=== PATIENT | female | born 1935 | race Caucasian/White ===

== ENCOUNTER → 2017-07-31 | Outpatient (CLI) | payer MEDICARE, OTHER | END | disposition home or self-care (01) | LOC: GMAJ 10:55 | PROVIDERS: ATTEND Family Medicine | DX: E03.9 Hypothyroidism, unspecified (principal) ==

== ENCOUNTER 2018-10-05 08:11 | Emergency (ER) | payer MEDICARE, OTHER ==
[2018-10-05 08:43] VITALS: TEMP 97.1; O2SAT 98
--- NOTE | 2018-10-05 09:06 | ED.PDOC ---
History of Present Illness - General Chief Complaint: General Stated Complaint: rectal pain and discomfort Time Seen by Provider: 10/05/18 09:03 Source: patient Exam Limitations: no limitations - History of Present Illness Initial Comments: the patient is an 83-year-old female presenting to the emergency room secondary to bleeding external hemorrhoids. Apparently she started having some bleeding last night. At this point she is essentially hemostatic. She has had hemorrhoids for a very long time. She does have some chronic constipation issues. She is not taking anything for the hemorrhoids but she does take blood thinners of Plavix and aspirin. No history of any lower extremity endoscopies in the past.clinically the patient does not appear to be anemic. Timing/Duration: 4-6 hours Severity: moderate Improving Factors: nothing Worsening Factors: nothing Associated Symptoms: denies symptoms Allergies/Adverse Reactions: Allergies NO KNOWN ALLERGY Allergy (Verified 10/05/18 08:39) Home Medications: Ambulatory Orders Aspirin-Dipyridamole [Aggrenox] 2 cap PO DAILY 11/21/13 Ezetimibe/Simvastatin 10/40Mg [Vytorin] 1 tab PO 11/21/13 Nifedipine 1 PO QAM 11/21/13 Nitroglycerin [Minitran] 0.4 mg SL PRN PRN 01/19/15 Docusate Sodium [Colace Cap] 100 mg PO BID #14 cap 10/05/18 Hydrocortisone 25 mg Supp [Anusol-HC Suppository] 1 ea AR Q8HR #14 sup 10/05/18 Review of Systems - Review of Systems Constitutional: States: no symptoms reported EENTM: States: no symptoms reported Respiratory: States: no symptoms reported Cardiology: States: no symptoms reported Gastrointestinal/Abdominal: States: see HPI Genitourinary: States: no symptoms reported Musculoskeletal: States: no symptoms reported Skin: States: no symptoms reported Neurological: States: anxiety All other Systems: No Change from Baseline Past Medical History (General) - Patient Medical History Hx Seizures: No Hx Stroke: No Hx Asthma: No Hx of COPD: No Hx Cardiac Disorders: Yes - heart stent 4 weeks ago Hx Congestive Heart Failure: No Hx Pacemaker: No Hx Hypertension: Yes Hx Diabetes: No Hx Gastroesophageal Reflux: No Hx Renal Disease: No Hx Cancer: No Hx of HIV: No Hx Hepatitis C: No Hx MRSA: No Surgical History: Hysterectomy - Vaccination History Hx Tetanus, Diphtheria Vaccination: Yes Hx Influenza Vaccination: Yes Hx Pneumococcal Vaccination: Yes Immunizations Up to Date: Yes - Social History Hx Tobacco Use: No Hx Chewing Tobacco Use: No Hx Alcohol Use: No Hx Substance Use: No Hx Substance Use Treatment: No Hx Depression: No Feels Threatened In Home Enviroment: No Feels Threatened In a Relationship: No Hx Physical Abuse: No Hx Emotional Abuse: No Hx Suspected Abuse: No - Female History Patient is a Female of Child Bearing Age (10 -59 yrs old): No Patient : No Family Medical History - Family History Father Family History: Unknown Living Status: Hx Family Asthma: No Hx Family Cancer: Yes - lung Physical Exam - Physical Exam General Appearance: Alert, Anxious, No apparent distress Eye Exam: bilateral normal Ears, Nose, Throat: hearing grossly normal, normal ENT inspection Neck: full range of motion Respiratory: no respiratory distress, no accessory muscle use Cardiovascular/Chest: normal peripheral pulses, no edema, other - regular rate Peripheral Pulses: radial,right: 2+, radial,left: 2+, dorsalis pedis,right: 2+, dorsalis pedis,left: 2+ Gastrointestinal/Abdominal: non tender, soft Rectal Exam: other - no digital rectal exam was performed given the obviously engorged external hemorrhoids. The patient has very large external hemorrhoids that are chronic in nature. she has 2 that appeared to have recently been bleeding but are not bleeding at this time. they are very tender to palpation. 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 The Plavix and aspirin are likely making the bleeding a little more of a problem than it would be otherwise. The patient is going to be written for Anusol suppositories and she needs to pick and shovel man some Preparation H ointment to use externally 3-4 times daily. She will also be written for Colace to take 3 times daily for the next week to prevent constipation. She needs to keep herself hydrated. I do want her to follow back up with her primary care doctor in a week to 10 days for repeat evaluation, hopefully once the hemorrhoids are starting to shrink down to make sure that there is no evidence of any mass component otherwise contributing to their development. The patient may be a good candidate for flexible sigmoidoscopy in the near future. She denies ever having had a colonoscopy or flexible sigmoidoscopy in the past. blood pressures were initially elevated however have returned down to normal. This is most likely a stress response. ER warnings were given for any worsening. Departure - Departure Clinical Impression: External bleeding hemorrhoids Disposition: Discharge to Home or Self Care Condition: Fair Departure Forms: ED Discharge - Pt. Copy, Patient Portal Self Enrollment Instructions: Hemorrhoids (DC) Diet: other - igh-fiber Referrals: Gerard Guerrero MD [Primary Care Provider] - 1-2 Weeks Prescriptions: Hydrocortisone 25 mg Supp [Anusol-HC Suppository] 1 ea AR Q8HR #14 sup Docusate Sodium [Colace Cap] 100 mg PO BID #14 cap Home Medications: Ambulatory Orders Aspirin-Dipyridamole [Aggrenox] 2 cap PO DAILY 11/21/13 Ezetimibe/Simvastatin 10/40Mg [Vytorin] 1 tab PO 11/21/13 Nifedipine 1 PO QAM 11/21/13 Nitroglycerin [Minitran] 0.4 mg SL PRN PRN 01/19/15 Docusate Sodium [Colace Cap] 100 mg PO BID #14 cap 10/05/18 Hydrocortisone 25 mg Supp [Anusol-HC Suppository] 1 ea AR Q8HR #14 sup 10/05/18 Additional Instructions: the patient is an 83-year-old female presenting to the emergency room secondary to bleeding external hemorrhoids that appear to be chronic in nature. The Plavix and aspirin are likely making the bleeding a little more of a problem than it would be otherwise. The patient is going to be written for Anusol suppositories and she needs to pick and shovel man some Preparation H ointment to use externally 3-4 times daily. She will also be written for Colace to take 3 times daily for the next week to prevent constipation. She needs to keep herself hydrated. I do want her to follow back up with her primary care doctor in a week to 10 days for repeat evaluation, hopefully once the hemorrhoids are starting to shrink down to make sure that there is no evidence of any mass component otherwise contributing to their development. The patient may be a good candidate for flexible sigmoidoscopy in the near future. She denies ever having had a colonoscopy or flexible sigmoidoscopy in the past. blood pressures were initially elevated however have returned down to normal. This is most likely a stress response. ER warnings were given for any worsening.
[2018-10-05 09:55] VITALS: BP 157/95
== END 2018-10-05 09:57 | disposition home or self-care (01) ==
LOC: ER 08:11
DX: K64.4 Residual hemorrhoidal skin tags (principal); I51.9 Heart disease, unspecified; I10 Essential (primary) hypertension; Z95.5 Presence of coronary angioplasty implant and graft; Z79.02 Long term (current) use of antithrombotics/antiplatelets; Z79.82 Long term (current) use of aspirin; Z79.899 Other long term (current) drug therapy

== ENCOUNTER 2020-04-30 10:18 | Emergency (ER) | payer OTHER ==
[2020-04-30] MEDS ORDERED: SODIUM CHLORIDE 0.9% (FLUSH) 10 ML SYG ONE (10:33)
[2020-04-30] MEDS ORDERED: SODIUM CHLORIDE 0.9% (FLUSH) 10 ML SYG IV PRN (10:33)
[2020-04-30] MEDS ORDERED: ONDANSETRON INJ 4 MG/2 ML VIAL IV ONE (10:33)
[2020-04-30] MEDS ORDERED: ASPIRIN TABLET 325 MG TAB PO ONE (10:33)
--- NOTE | 2020-04-30 10:39 | ED.PDOC ---
History of Present Illness - General Chief Complaint: Cardiovascular Problem Stated Complaint: Elevated HR, intermittent chest tightness Time Seen by Provider: 04/30/20 10:28 Source: patient, family Exam Limitations: no limitations - History of Present Illness Initial Comments: Is an 84-year-old female with past medical history hypertension who presents to the ED with palpitation that began at 5 AM today. She awoke feeling that her heart was beating fast and then measured her pulse and it was 130. Has been constant for the past 5 hours. She denies chest pain, shortness of breath, nausea, vomiting, fever or any recent illness. Denies history of irregular heartbeat. Community Relations Coordinator is Dr. Ramos in [place]. Allergies/Adverse Reactions: Allergies NO KNOWN ALLERGY Allergy (Verified 04/30/20 10:40) Home Medications: Ambulatory Orders Ezetimibe/Simvastatin 10/40Mg [Vytorin] 1 tab PO QPM 11/21/13 Nifedipine 90 mg PO BID 11/21/13 Nitroglycerin [Minitran] 0.4 mg SL PRN PRN 01/19/15 Aspirin [Aspirin 81 Low Dose] 81 mg PO THIAGO-OTH-DAY 04/30/20 Carvedilol 6.25 mg PO BID 04/30/20 Clopidogrel Bisulfate 75 mg PO DAILY 04/30/20 Isosorbide Mononitrate [Isosorbide Mononitrate ER] 60 mg PO QAM 04/30/20 Ranolazine [Ranolazine ER] 500 mg PO BID 04/30/20 Review of Systems - Review of Systems Constitutional: Denies: chills, fever, weakness EENTM: Denies: blurred vision, throat pain Respiratory: Denies: cough, short of breath Cardiology: States: palpitations. Denies: chest pain, syncope Gastrointestinal/Abdominal: Denies: abdominal pain, diarrhea, nausea Genitourinary: Denies: dysuria Musculoskeletal: Denies: back pain, neck pain Neurological: Denies: headache All other Systems: Reviewed and Negative Past Medical History (General) - Patient Medical History Hx Seizures: No Hx Stroke: No Hx Asthma: No Hx of COPD: No Hx Cardiac Disorders: Yes - heart stent 4 weeks ago Hx Congestive Heart Failure: No Hx Pacemaker: No Hx Hypertension: Yes Hx Diabetes: No Hx Gastroesophageal Reflux: No Hx Renal Disease: No Hx Cancer: No Hx of HIV: No Hx Hepatitis C: No Hx MRSA: No - Vaccination History Hx Tetanus, Diphtheria Vaccination: Yes Hx Influenza Vaccination: Yes Hx Pneumococcal Vaccination: Yes - Social History Hx Tobacco Use: No Hx Chewing Tobacco Use: No Hx Alcohol Use: No Hx Substance Use: No Hx Substance Use Treatment: No Hx Depression: No Hx Physical Abuse: No Hx Emotional Abuse: No Hx Suspected Abuse: No - Female History Patient : No Family Medical History - Family History Father Family History: Unknown Living Status: Hx Family Asthma: No Hx Family Cancer: Yes - lung Physical Exam - Physical Exam General Appearance: Alert, Comfortable, No apparent distress Neck: non-tender, full range of motion, supple Respiratory: chest non-tender, lungs clear, normal breath sounds, no respiratory distress, no accessory muscle use Cardiovascular/Chest: other - tachycardia, regular. 2+ distal pulses Gastrointestinal/Abdominal: non tender, soft, no pulsatile mass Extremity: normal range of motion, non-tender, no calf tenderness Neurologic: no motor/sensory deficits, alert, normal mood/affect, oriented x 3 Skin Exam: normal color, warm/dry Progress - Progress Progress: 04/30/20 11:04 Patient presented to ED with 5-hour history of palpitations and pulse in the 130s. She denies any previous abnormal heart beat. She denies chest pain, nausea, shortness of breath, dizziness or near syncope. Initial EKG showed atrial flutter with a rate of 130. Patient was given IV Cardizem and she continued to be in an atrial irregular rhythm but heart rate slowed to the upper 40s to low 50s. 04/30/20 11:11 Pt recheck. Pulse 64, irregular. Pt denies pain. Resting comfortably. 04/30/20 11:39 Discussed with pt and son results. Troponin negative and BNP mildly elevated. She continues to be in atrial flutter on monitor, rate in 60's at this time after Diltiazem. I have recommended transfer for cardiology eval of new onset a flutter and pt and family agree and request transfer to [facility]. Will call transfer line. 04/30/20 12:02 D/W Dr. Epstein, airplane captain [facility], will consult. Requests to give Lovenox and PO B angélica before transport. D/W Dr. Chanel, hospitalist, will accept transfer and admit. - Results/Orders Results/Orders: EKG at 1024- atrial flutter with 2:1 conduction, rate 131, nml QRS interval, nonspecific ST abnormality EKG at 1058- atrial fib with slowed ventricular response, rate 45, nml QRS interval, nonspecific ST abnormality CXR EXAM: Chest,1 View CLINICAL INDICATION: Palpitations COMPARISON: 01/19/2015 FINDINGS: A single view of the chest was obtained. Atherosclerotic calcifications are noted involving the aorta. The heart size is normal. The pulmonary vascularity is unremarkable. The lungs are clear. There is no consolidation, infiltrate, pleural effusion, or pneumothorax. IMPRESSION: No evidence of active pulmonary disease. 04/30/20 10:33 Sodium Chloride 0.9% (Flush) [Saline Flush Syringe] 10 ml IV PRN PRN EKG Stat Pulse Ox Stat 04/30/20 12:00 EKG STAT Laboratory Results - last 24 hr 04/30/20 10:41 WBC 5.6 RBC 4.54 Hgb 14.1 Hct 41.4 MCV 91.0 MCH 30.9 MCHC 34.0 RDW 13.5 Plt Count 240 MPV 7.7 Absolute Neuts (auto) 4.20 Absolute Lymphs (auto) 0.80 L Absolute Monos (auto) 0.40 Absolute Eos (auto) 0.10 Absolute Basos (auto) 0.00 Neutrophils % 76.1 Lymphocytes % 14.3 L Monocytes % 7.5 Eosinophils % 1.5 Basophils % 0.6 PT 10.4 INR 1.05 PTT (SP) 26.3 Sodium 139 Potassium 4.1 Chloride 102 Carbon Dioxide 25 Anion Gap 16.1 BUN 13 Creatinine 1.04 BUN/Creatinine Ratio 12.5 Random Glucose 190 H Serum Osmolality 282.7 Calcium 9.3 Magnesium 2.1 Creatine Kinase 56 CK-MB (CK-2) 1.6 CK-MB (CK-2) % Not Reportable Troponin I < 0.02 B-Natriuretic Peptide 209.0 H* Departure - Departure Clinical Impression: Atrial flutter with rapid ventricular response, Tachycardia Time of Disposition: 11:48 Disposition: Transfer to Hospital Condition: Fair Departure Forms: ED Discharge - Pt. Copy, Patient Portal Self Enrollment Instructions: DI for Chest Pain Referrals: Gerard Guerrero MD [Primary Care Provider] - 1-2 Weeks Home Medications: Ambulatory Orders Ezetimibe/Simvastatin 10/40Mg [Vytorin] 1 tab PO QPM 11/21/13 Nifedipine 90 mg PO BID 11/21/13 Nitroglycerin [Minitran] 0.4 mg SL PRN PRN 01/19/15 Aspirin [Aspirin 81 Low Dose] 81 mg PO THIAGO-OTH-DAY 04/30/20 Carvedilol 6.25 mg PO BID 04/30/20 Clopidogrel Bisulfate 75 mg PO DAILY 04/30/20 Isosorbide Mononitrate [Isosorbide Mononitrate ER] 60 mg PO QAM 04/30/20 Ranolazine [Ranolazine ER] 500 mg PO BID 04/30/20 Transfer to Outside Facility - Transfer Information Decision to Transfer Date: 04/30/20 Decision to Transfer Time: 11:47 Reason for Transfer: specialized care not available Accepting Provider:: Dr. Chanel Accepting Facility: [facility]
--- NOTE | 2020-04-30 10:54 | RAD ---
EXAM: Chest,1 View CLINICAL INDICATION: Palpitations COMPARISON: 01/19/2015 FINDINGS: A single view of the chest was obtained. Atherosclerotic calcifications are noted involving the aorta. The heart size is normal. The pulmonary vascularity is unremarkable. The lungs are clear. There is no consolidation, infiltrate, pleural effusion, or pneumothorax. IMPRESSION: No evidence of active pulmonary disease. Electronically signed by: Demetrius Dinh MD 04/30/2020 10:52 AM CDT
[2020-04-30] MEDS ORDERED: CARVEDILOL 3.125 MG TAB PO ONE (12:02)
[2020-04-30] MEDS ORDERED: ENOXAPARIN SODIUM 60 MG/0.6 ML SYG SUBCU ONE (12:04)
[2020-04-30 12:07] VITALS: TEMP 97.5
[2020-04-30] MEDS ORDERED: LABETALOL INJ 5 MG/ML VIAL IV ONE (12:36)
[2020-04-30 12:53] VITALS: BP 112/66; O2SAT 96
== END 2020-04-30 12:55 | disposition short-term general hospital (02) ==
LOC: ER 10:18
DX: I48.92 Unspecified atrial flutter (principal); R00.0 Tachycardia, unspecified; I48.91 Unspecified atrial fibrillation; I51.9 Heart disease, unspecified; I10 Essential (primary) hypertension; Z95.5 Presence of coronary angioplasty implant and graft; Z79.899 Other long term (current) drug therapy; Z79.82 Long term (current) use of aspirin
CPT/HCPCS: 36415; 71045; 80048; 82550; 82553; 83880; 84484; 85025; 85610; 85730; 93005; 94760; A4216; J1650; J2405

== ENCOUNTER → 2020-07-11 | Outpatient (CLI) | payer OTHER ==
--- NOTE | 2020-07-11 12:29 | CT ---
EXAM DESCRIPTION: Head CLINICAL HISTORY: 85 years Female, unspecified symptoms and signs involving cognitive function and a COMPARISON: CT head 01/19/2015. MR brain 03/27/2015. TECHNIQUE: Axial images obtained from the skull base to the vertex without intravenous contrast with images. Coronal and sagittal reformations provided. This exam was performed according to our departmental dose-optimization program, which includes automated exposure control, adjustment of the mA and/or kV according to patient size and/or use of iterative reconstruction technique. Time Last Seen Well (If known) for Code Stroke: n/a FINDINGS: Brain Parenchyma, ventricles, meninges, and extra-axial spaces: Mild generalized cerebral atrophy. Moderate to severe Nonspecific white matter hypodensities in the cerebral hemispheres likely related to ischemic small vessel disease. Possible difficulty differentiating a small acute infarction given these hypodensities. No acute intracranial hemorrhage. No abnormal extra-axial fluid collection. Vascular: Atherosclerosis is within the carotid siphons and vertebral arteries. Calvarium, paranasal sinuses, mastoids, and orbits: Calvarium intact. Visualized paranasal sinuses and mastoid air cells clear. Left orbital lens placement. IMPRESSION: 1. No acute intracranial abnormality. 2. Senescent changes. Electronically signed by: Chon Lyn MD 07/11/2020 12:27 PM [facility]
== END ==
LOC: CT 09:24
PROVIDERS: ATTEND Family Medicine
DX: G31.9 Degenerative disease of nervous system, unspecified (principal); R41.9 Unspecified symptoms and signs involving cognitive functions and awareness

== ENCOUNTER 2020-08-08 15:17 | Inpatient (IN) | payer OTHER ==
--- NOTE | 2020-08-08 15:48 | ED.PDOC ---
History of Present Illness - General Chief Complaint: Respiratory Problem Stated Complaint: covid positive Time Seen by Provider: 08/08/20 15:20 Source: patient, RN notes reviewed, Vital Signs reviewed, family - Son Exam Limitations: no limitations - History of Present Illness Initial Comments: Patient is an 85-year-old white female who presents with complaints of generalized malaise and fatigue that has been ongoing for the last 3 to 4 days. Patient states the symptoms are getting worse. Patient was seen at her PCPs office this morning and was diagnosed with Covid and was sent to the hospital for further evaluation and admission if indicated. Patient's malaise and fatigue is constant, worsening, not improved by anything, worsened by exertion. Patient denies any shortness of breath but is 88% on room air on arrival here. Patient denies any headache, dizziness, blurry vision, chest pain, shortness of breath, nausea, vomiting or diarrhea. Timing/Duration: getting worse Severity: moderate Improving Factors: nothing Worsening Factors: movement Associated Symptoms: malaise, weakness Allergies/Adverse Reactions: Allergies NO KNOWN ALLERGY Allergy (Verified 04/30/20 10:40) Home Medications: Ambulatory Orders Nifedipine 90 mg PO BID 11/21/13 Nitroglycerin [Minitran] 0.4 mg SL PRN PRN 01/19/15 Aspirin [Aspirin 81 Low Dose] 81 mg PO DAILY 04/30/20 Carvedilol 6.25 mg PO BID 04/30/20 Isosorbide Mononitrate [Isosorbide Mononitrate ER] 60 mg PO QAM 04/30/20 Ranolazine [Ranolazine ER] 500 mg PO BID 04/30/20 Amiodarone HCl 200 mg PO DAILY 08/08/20 Apixaban [Eliquis] 2.5 mg PO BID 08/08/20 Atorvastatin Calcium 40 mg PO DAILY 08/08/20 Clonidine HCl 0.1 mg PO Q6H PRN 08/08/20 Review of Systems - Review of Systems Constitutional: States: see HPI, malaise, weakness. Denies: chills, fever EENTM: States: no symptoms reported. Denies: eye pain, blurred vision, double vision Respiratory: States: no symptoms reported. Denies: cough, short of breath, wheezing Cardiology: States: no symptoms reported. Denies: chest pain, palpitations, syncope Gastrointestinal/Abdominal: States: no symptoms reported. Denies: abdominal pain, diarrhea, nausea, vomiting Musculoskeletal: States: no symptoms reported. Denies: back pain, joint pain, neck pain Skin: States: no symptoms reported. Denies: change in color, rash Neurological: States: see HPI, weakness. Denies: headache, tingling, tremors Endocrine: States: no symptoms reported. Denies: increased hunger, increased thirst, increased urine Hematologic/Lymphatic: States: no symptoms reported All other Systems: Reviewed and Negative, No Change from Baseline Past Medical History (General) - Patient Medical History Hx Seizures: No Hx Stroke: Yes - TIA Hx Dementia: Yes Hx Asthma: No Hx of COPD: No Hx Cardiac Disorders: Yes - angioplasty, afib Hx Congestive Heart Failure: No Hx Pacemaker: No Hx Hypertension: Yes Hx Diabetes: No Hx Gastroesophageal Reflux: No Hx Renal Disease: No Hx Cancer: No Hx of HIV: No Hx Hepatitis C: No Hx MRSA: No Surgical History: Hysterectomy, other - Vaccination History Hx Tetanus, Diphtheria Vaccination: Yes Hx Influenza Vaccination: No Hx Pneumococcal Vaccination: No - Social History Hx Tobacco Use: Yes Hx Chewing Tobacco Use: No Hx Alcohol Use: No Hx Substance Use: No Hx Substance Use Treatment: No Hx Depression: No Hx Physical Abuse: No Hx Emotional Abuse: No Hx Suspected Abuse: No - Female History Patient : No Family Medical History - Family History Father Family History: Unknown Living Status: Hx Family Asthma: No Hx Family Cancer: Yes - lung Physical Exam - Physical Exam General Appearance: Alert, Comfortable, Well Developed, Well Groomed, Well Hydrated, Well Nourished Eye Exam: bilateral normal Ears, Nose, Throat: hearing grossly normal, normal ENT inspection, normal pharynx - except for tacky mucous membranes Neck: non-tender, full range of motion, supple Respiratory: chest non-tender, lungs clear, normal breath sounds, respiratory distress - mild Cardiovascular/Chest: normal peripheral pulses, regular rate, rhythm, no edema, no gallop, no JVD, no murmur Peripheral Pulses: radial,right: 2+, radial,left: 2+ Gastrointestinal/Abdominal: normal bowel sounds, non tender, soft, no organomegaly Back Exam: normal inspection, no CVA tenderness, no vertebral tenderness Extremity: normal range of motion, non-tender, normal inspection 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 08/08/20 18:21 Patient presents from home after seeing her PCP, Dr. Guerrero, today. Patient diagnosed with Covid and has been a bit confused per her family. Question is whether this is secondary to her amiodarone or if it is because of hypoxia. On arrival here patient was 88% on room air. Her oxygen saturations come up to 93% on 2 to 3 L via nasal cannula. Labs are consistent with Covid infection. I suspect hypoxia secondary to her Covid status. Plan on admission to the hospital for further evaluation and treatment. I discussed this plan of care with the patient and her son and they voiced understanding and agreement. I discussed this with Homero Hendricks, ENMANUEL, and he accepts the patient for admission. Vince Whitmore M.D. #[id number] - Results/Orders Results/Orders: EKG performed on 08 August 2020 at 1541 hrs.: Normal sinus rhythm at 69 bpm, normal axis deviation, nonspecific T wave flattening inferiorly and laterally. Abnormal EKG. No comparison EKG available at this time. EXAM DESCRIPTION: Chest,1 View CLINICAL HISTORY: 85 years Female, confusion COMPARISON: Previous chest x-ray April 30, 2020 TECHNIQUE: AP portable chest. FINDINGS: Heart size is large with increased pulmonary vascularity. Heart appears larger than on previous study. Moderate bilateral pleural effusio ns. Pleural effusions are new since previous exam. No pulmonary mass or worrisome nodule. No pneumothorax. Bones are osteopenic or osteoporotic. IMPRESSION: Large heart with prominent pulmonary vascularity. [id number] bilateral pleural effusions. Electronically signed by: Reagan Cooley MD 08/08/2020 3:57 08/08/20 15:21 IV Care:Saline Lock per Protoc STAT Isolation:Airborne ONCE Telemetry STAT 08/08/20 15:30 EKG STAT Pulse Ox, Continuous Monitoring STAT 08/09/20 15:30 Pulse Ox, Continuous Monitoring STAT 08/10/20 15:30 Pulse Ox, Continuous Monitoring STAT Laboratory Results - last 24 hr 12/29/20 12/29/20 12/29/20 15:55 15:55 15:55 WBC 4.5 L RBC 3.76 L Hgb 11.6 L Hct 34.4 L MCV 91.6 MCH 30.9 MCHC 33.7 RDW 13.6 Plt Count 245 MPV 8.3 Absolute Neuts (auto) 4.00 Absolute Lymphs (auto) 0.20 L Absolute Monos (auto) 0.30 Absolute Eos (auto) 0.00 Absolute Basos (auto) 0.00 Neutrophils % 89.0 H Lymphocytes % 4.7 L Monocytes % 6.2 Eosinophils % 0.0 L Basophils % 0.1 PTT (SP) 31.2 D-Dimer, Quantitative 618.0 H* Sodium 133 L Potassium 3.8 Chloride 100 L Carbon Dioxide 20 L Anion Gap 16.8 BUN 24 H Creatinine 1.03 BUN/Creatinine Ratio 23.3 H Random Glucose 156 H Serum Osmolality 273.6 L Calcium 8.4 Magnesium 1.8 Total Bilirubin 0.5 AST 50 H ALT 89 H Alkaline Phosphatase 52 LD Total 174 Creatine Kinase 50 Troponin I C-Reactive Protein 9.1 H* B-Natriuretic Peptide 338.0 H* Serum Total Protein 7.1 Albumin 3.3 Globulin 3.8 H Albumin/Globulin Ratio 0.9 L 08/08/20 15:55 WBC RBC Hgb Hct MCV MCH MCHC RDW Plt Count MPV Absolute Neuts (auto) Absolute Lymphs (auto) Absolute Monos (auto) Absolute Eos (auto) Absolute Basos (auto) Neutrophils % Lymphocytes % Monocytes % Eosinophils % Basophils % PTT (SP) D-Dimer, Quantitative Sodium Potassium Chloride Carbon Dioxide Anion Gap BUN Creatinine BUN/Creatinine Ratio Random Glucose Serum Osmolality Calcium Magnesium Total Bilirubin AST ALT Alkaline Phosphatase LD Total Creatine Kinase Troponin I < 0.02 C-Reactive Protein B-Natriuretic Peptide Serum Total Protein Albumin Globulin Albumin/Globulin Ratio Vital Signs 08/08/20 08/08/20 08/08/20 15:37 16:00 17:00 Temperature 98.2 F Pulse Rate [ 72 67 64 left brachial] Respiratory 18 21 16 Rate Blood Pressure 134/65 127/68 130/62 [left brachial] O2 Sat by Pulse 89 L 89 L 91 L Oximetry Departure - Departure Clinical Impression: COVID-19, Hypoxia Pneumonia Qualifiers: Pneumonia type: due to unspecified organism Laterality: bilateral Lung location: unspecified part of lung Qualified Code(s): J18.9 - Pneumonia, unspecified organism Time of Disposition: 18:27 Disposition: Admit Patient Condition: Fair Departure Forms: ED Discharge - Pt. Copy, Patient Portal Self Enrollment Referrals: Gerard Guerrero MD [Primary Care Provider] - 1-2 Weeks Home Medications: Ambulatory Orders Nifedipine 90 mg PO BID 11/21/13 Nitroglycerin [Minitran] 0.4 mg SL PRN PRN 01/19/15 Aspirin [Aspirin 81 Low Dose] 81 mg PO DAILY 04/30/20 Carvedilol 6.25 mg PO BID 04/30/20 Isosorbide Mononitrate [Isosorbide Mononitrate ER] 60 mg PO QAM 04/30/20 Ranolazine [Ranolazine ER] 500 mg PO BID 04/30/20 Amiodarone HCl 200 mg PO DAILY 08/08/20 Apixaban [Eliquis] 2.5 mg PO BID 08/08/20 Atorvastatin Calcium 40 mg PO DAILY 08/08/20 Clonidine HCl 0.1 mg PO Q6H PRN 08/08/20 Decision To Admit - Decistion To Admit Decision to Admit Date: 08/08/20 Decision to Admit Time: 18:00
--- NOTE | 2020-08-08 15:59 | RAD ---
EXAM DESCRIPTION: Chest,1 View CLINICAL HISTORY: 85 years Female, confusion COMPARISON: Previous chest x-ray April 30, 2020 TECHNIQUE: AP portable chest. FINDINGS: Heart size is large with increased pulmonary vascularity. Heart appears larger than on previous study. Moderate bilateral pleural effusions. Pleural effusions are new since previous exam. No pulmonary mass or worrisome nodule. No pneumothorax. Bones are osteopenic or osteoporotic. IMPRESSION: Large heart with prominent pulmonary vascularity. [id number] bilateral pleural effusions. Electronically signed by: Reagan Cooley MD 08/08/2020 3:57 PM [facility]
[2020-08-08] MEDS ORDERED: cefTRIAXone SODIUM 1 GM in SODIUM CHL 0.9% 50ML MIN-BAG+ 50 ML IVPB ONE (18:24)
[2020-08-08] MEDS ORDERED: REMDESIVIR 200 MG in SODIUM CHLORIDE 0.9% 250ML 250 ML IVPB ONE (18:25)
[2020-08-08] MEDS ORDERED: AZITHROMYCIN IV 500 MG in SODIUM CHLORIDE 0.9% 250ML 250 ML IVPB ONE (18:25)
--- NOTE | 2020-08-08 18:30 | HP ---
SUPERVISING PHYSICIAN: Elizabeth Lin MD CHIEF COMPLAINT: Shortness of breath. HISTORY OF PRESENT ILLNESS: This is an 85-year-old female patient who presented to the Emergency Room due to shortness of breath, malaise and fatigue with increasing weakness for 3 to 4 days prior to admission. She was at her primary care physician's office this morning and was diagnosed with COVID. She has had weakness and malaise for 3 to 4 days prior to admission. Her primary care physician, Dr. Guerrero, sent her to the Emergency Room for evaluation. In the ER, her vital signs were temperature 98.9, heart rate 72, blood pressure 134/65, respiratory rate 21, O2 saturation 89% on 2 liters nasal cannula. Lab studies were done. WBCs 4,500, hemoglobin 11.6, hematocrit 34.4. She had a left shift on differential. D-dimer 618. Electrolytes showed sodium 133, potassium 3.8, chloride 100, carbon dioxide 20, BUN 24, creatinine 1.03. AST 50, ALT 89, C- reactive protein 9.1, BNP 338. Blood cultures were drawn. Chest x-ray showed large heart with prominent pulmonary vascularity, mild to moderate bilateral pleural effusions. She was given Remdesivir, azithromycin, Rocephin and Decadron in the ER and admitted to the hospital. It is to be noted that she has a history of atrial fibrillation and is on a beta angélica and Eliquis. She was recently put on amiodarone. There was a discrepancy in her dosing and that was clarified by her primary care physician today. PAST MEDICAL HISTORY: 1. Hyperlipidemia. 2. Hypertension. 3. Atrial fibrillation on Eliquis, beta angélica and amiodarone. 4. Coronary artery disease. 5. Mild Alzheimer's disease. 6. Transient ischemic attack. 7. Raynaud's syndrome. 8. Right eye blindness. PAST SURGICAL HISTORY: 1. Hysterectomy. 2. PTCA. 3. Right renal artery angioplasty. OUTPATIENT MEDICATIONS: Per the EMR and awaiting verification. ALLERGIES: NO KNOWN DRUG ALLERGIES. FAMILY HISTORY: Positive for cancer, TIA. SOCIAL HISTORY: She lives in [place]. She is . There is no history of tobacco, ETOH or illicit drug use. REVIEW OF SYSTEMS: GENERAL: Positive for fatigue. Negative for fever or weight changes. HEENT: Negative for sinus symptoms, ear pain, vision changes or sore throat. RESPIRATORY: Positive for coughing and shortness of breath. Negative for wheezing. CARDIAC: Negative for chest pain, palpitations or tachycardia. GASTROINTESTINAL: Negative for nausea, vomiting, diarrhea, constipation. GENITOURINARY: Negative for hematuria, dysuria or polyuria. SKIN: Negative for lesions or rashes. NEUROLOGIC: Positive for weakness. Negative for headache or seizures. PHYSICAL EXAMINATION: VITAL SIGNS: Temperature 98.7, heart rate 57, blood pressure 149/65, respiratory rate 20, O2 saturation 93% on 4 liters nasal cannula. GENERAL: This is an 85-year-old female patient lying in her hospital bed. She is in mild respiratory distress. HEENT: Normocephalic, atraumatic. Pupils are equal and reactive. Oropharynx is clear. NECK: Supple with full range of motion. RESPIRATORY: Diminished at the bases with a few scattered rhonchi. She is tachypneic with any exertion. CARDIOVASCULAR: Regular rate and irregular rhythm. Atrial fibrillation on the laboratory monitor. GASTROINTESTINAL: Abdomen is soft, nondistended, nontender. Bowel sounds are positive. EXTREMITIES: No cyanosis, clubbing or edema. NEUROLOGIC: Awake, alert and oriented times three. Cranial nerves II-XII are grossly intact as tested. LABORATORY: Followup lab shows WBCs 5,100, hemoglobin 10, hematocrit 29.8. She has a left shift on differential. D-dimer 489. Electrolytes are basically within normal limits with the exception of calcium 7.8. AST 43, ALT 35, alkaline phosphatase 40. C-reactive protein 7.4. RADIOLOGY: Followup chest x-ray shows mild cardiomegaly with slightly progressive right basilar consolidation with mild opacity in left midlung, tiny bilateral pleural effusions re-demonstrated. No pneumothorax. IMPRESSION: 1. COVID pneumonitis. 2. Weakness and malaise secondary to #1. 3. Coronary artery disease. 4. Atrial fibrillation on Eliquis, beta angélica and recently started on amiodarone. 5. Mild dementia. PLAN: The patient has been admitted to the hospital and started on COVID-19 protocol including labs and medications. We will continue with Rocephin, azithromycin, Remdesivir, Decadron and Eliquis. She will also have aggressive pulmonary hygiene including p.r.n. and scheduled breathing treatments. We will follow her labs per protocol and wean oxygen as tolerated. Her amiodarone has been clarified and she gets 200 mg daily. She will have a proton pump inhibitor for ulcer prophylaxis. Eliquis will be sufficient for DVT prophylaxis. We will monitor and treat as needed. #[id number] [facility]
[2020-08-08] MEDS ORDERED: ACETAMINOPHEN 325 MG TAB PO PRN (22:34)
[2020-08-08] MEDS ORDERED: SODIUM CHLORIDE 0.9% (FLUSH) 10 ML SYG IV PRN (22:34)
[2020-08-08] MEDS ORDERED: ONDANSETRON INJ 4 MG/2 ML VIAL IV PRN (22:34)
[2020-08-08] MEDS ORDERED: ALBUTEROL INHALER 64 PUFF/8GM INH PRN (22:40)
[2020-08-08] MEDS ORDERED: IV SET AND CAP CHANGE INJ INJ SCH (23:00)
[2020-08-09] MEDS: PANTOPRAZOLE SODIUM IV 40 MG VIAL IV SCH (05:48)
--- NOTE | 2020-08-09 07:53 | RAD ---
Study: Single Frontal Radiograph of the Chest. Indication:COVID Comparison: August 08, 2020 Impression: Mild cardiomegaly. Slightly progressed right basilar consolidation with mild opacity left mid lung. Tiny bilateral pleural effusions redemonstrated. No pneumothorax. Electronically signed by: Tex Pierson MD 08/09/2020 7:51 AM [employer]
[2020-08-09] MEDS ORDERED: AZITHROMYCIN IV 500 MG VIAL IVPB ONE (08:18)
[2020-08-09] MEDS ORDERED: SODIUM CHLORIDE 0.9% 250ML 250 ML ONE (08:19)
[2020-08-09] MEDS: cefTRIAXone SODIUM 1 GM in SODIUM CHL 0.9% 50ML MIN-BAG+ 50 ML IVPB SCH (08:47)
[2020-08-09] MEDS: RANOLAZINE ER 500 MG TAB PO SCH ×2 (08:48→21:08)
[2020-08-09] MEDS: CARVEDILOL 3.125 MG TAB PO SCH ×2 (08:48→21:07)
[2020-08-09] MEDS: DEXAMETHASONE INJ 10 MG/ML VIAL IV SCH (08:48)
[2020-08-09] MEDS: guaiFENesin ER TAB 600 MG TAB PO SCH ×2 (08:48→21:08)
[2020-08-09] MEDS: APIXABAN 5 MG TAB PO SCH ×2 (08:49→21:07)
[2020-08-09] MEDS ORDERED: AMIODARONE HCL 200 MG TAB PO SCH (09:00)
[2020-08-09] MEDS ORDERED: ASPIRIN (CHEWABLE) 81 MG TAB PO SCH (09:00)
[2020-08-09] MEDS ORDERED: NIFEdipine XL 90 MG TAB PO SCH (09:00)
[2020-08-09] MEDS ORDERED: NON-FORMULARY MEDICATION 1 EA MIS (Carvedilol [Carvedilol] 6.25 MG) PO SCH (09:00)
[2020-08-09] MEDS ORDERED: NIFEDIPINE 90 MG PO SCH (09:00)
[2020-08-09] MEDS ORDERED: ISOSORBIDE MONONITRATE PO SCH (09:00)
[2020-08-09] MEDS ORDERED: NON-FORMULARY MEDICATION 1 EA MIS (Atorvastatin Calcium [Atorvastatin Calcium] 40 MG) PO SCH (09:00)
[2020-08-09] MEDS ORDERED: ISOSORBIDE MONONITRATE (IMDUR) 30 MG TAB PO SCH (09:00)
[2020-08-09] MEDS ORDERED: BIFIDOBACTERIUM INFANTIS 4 MG CAP PO SCH (09:00)
[2020-08-09] MEDS ORDERED: ATORVASTATIN 20 MG TAB PO SCH (09:00)
[2020-08-09] MEDS: AZITHROMYCIN IV 500 MG in SODIUM CHLORIDE 0.9% 250ML 250 ML IVPB SCH (09:05)
[2020-08-09] MEDS: REMDESIVIR 100 MG in SODIUM CHLORIDE 0.9% 250ML 250 ML IVPB SCH (11:15)
[2020-08-09] MEDS ORDERED: NIFEdipine XL 30 MG TAB PO SCH (21:00)
[2020-08-10] MEDS ORDERED: ALBUTEROL INHALER 64 PUFF/8GM INH PRN (04:48)
[2020-08-10] MEDS ORDERED: PROMETHAZINE W/CODEINE SYR 6.25 MG/10 MG/5 ML UD PO PRN (04:50)
[2020-08-10] MEDS ORDERED: ALBUTEROL SULFATE 2.5 MG/3 ML VIAL NEB ONE (05:26)
--- NOTE | 2020-08-10 06:20 | CT ---
EXAM: CT Angiography Chest With Intravenous Contrast CLINICAL HISTORY: The patient is 85 years old and is Female; resp distress TECHNIQUE: Axial computed tomographic angiography images of the chest with intravenous contrast. Sagittal and coronal reformatted images were created and reviewed. This CT exam was performed using one or more of the following dose reduction techniques: automated exposure control, adjustment of the mA and/or kV according to patient size, and/or use of iterative reconstruction technique. MIP reconstructed images were created and reviewed. COMPARISON: No relevant prior studies available. FINDINGS: Pulmonary arteries: Unremarkable. No pulmonary embolism. Aorta: No acute findings. No thoracic aortic aneurysm. Lungs: Extensive bilateral groundglass opacities. Pleural space: Bilateral pleural effusions with basilar consolidation versus atelectasis. No pneumothorax. Heart: Heart appears enlarged. No significant pericardial effusion. No evidence of RV dysfunction. Bones/joints: No acute fracture. No dislocation. Soft tissues: Unremarkable. Lymph nodes: Unremarkable. No enlarged lymph nodes. IMPRESSION: 1. Extensive bilateral groundglass opacities with bibasilar consolidation versus atelectasis. Findings concerning for multifocal pneumonia. 2. Bilateral pleural effusions . Electronically signed by: Harley Vega MD 08/10/2020 6:18 AM [facility]
[2020-08-10] MEDS: PANTOPRAZOLE SODIUM IV 40 MG VIAL IV SCH (06:28)
[2020-08-10] MEDS: IPRATROPIUM/ALBUTEROL 3 ML VIAL NEB SCH ×2 (07:25→14:16)
[2020-08-10] MEDS ORDERED: DEXAMETHASONE INJ 10 MG/ML VIAL ONE (07:28)
[2020-08-10] MEDS: cefTRIAXone SODIUM 1 GM in SODIUM CHL 0.9% 50ML MIN-BAG+ 50 ML IVPB SCH (07:53)
[2020-08-10] MEDS: DEXAMETHASONE INJ 10 MG/ML VIAL IV SCH ×2 (07:54→21:39)
[2020-08-10] MEDS ORDERED: APIXABAN 5 MG TAB PO SCH ×2 (08:00→20:00)
[2020-08-10] MEDS ORDERED: guaiFENesin ER TAB 600 MG TAB PO SCH (08:00)
[2020-08-10] MEDS ORDERED: ATORVASTATIN 20 MG TAB PO SCH (08:00)
[2020-08-10] MEDS ORDERED: RANOLAZINE ER 500 MG TAB PO SCH (08:00)
[2020-08-10] MEDS ORDERED: ISOSORBIDE MONONITRATE (IMDUR) 30 MG TAB PO SCH (08:00)
[2020-08-10] MEDS ORDERED: NIFEdipine XL 30 MG TAB PO SCH (08:00)
[2020-08-10] MEDS ORDERED: ASPIRIN (CHEWABLE) 81 MG TAB PO SCH (08:00)
[2020-08-10] MEDS ORDERED: CARVEDILOL 3.125 MG TAB PO SCH (08:00)
[2020-08-10] MEDS ORDERED: AMIODARONE HCL 200 MG TAB PO SCH (08:00)
[2020-08-10] MEDS ORDERED: BIFIDOBACTERIUM INFANTIS 4 MG CAP PO SCH (08:00)
[2020-08-10] MEDS: AZITHROMYCIN IV 500 MG in SODIUM CHLORIDE 0.9% 250ML 250 ML IVPB SCH (08:40)
[2020-08-10] MEDS: REMDESIVIR 100 MG in SODIUM CHLORIDE 0.9% 250ML 250 ML IVPB SCH (11:02)
[2020-08-10] MEDS ORDERED: LEVALBUTEROL NEBS 1.25 MG/3 ML VIAL NEB PRN (13:16)
[2020-08-10] MEDS: CEFEPIME 1 GM in SODIUM CHLORIDE 0.9% 50ML 50 ML IVPB SCH (13:57)
[2020-08-10] MEDS: KCL 20MEQ/D5 1/2NS 1,000 ML IVS PRN ×2 (13:57→23:59)
[2020-08-10] MEDS: LEVALBUTEROL NEBS 1.25 MG/3 ML VIAL NEB SCH ×2 (16:40→20:00)
[2020-08-10] MEDS ORDERED: SUCCINYLCHOLINE CHLORIDE 200 MG/10 ML VIAL ONE ×2 (18:10→18:51)
[2020-08-10] MEDS ORDERED: PROPOFOL 200 MG/20 ML VIAL IV ONE ×3 (18:19→20:56)
[2020-08-10] MEDS ORDERED: PROPOFOL 50 ML IV ONE (19:10)
[2020-08-10] MEDS ORDERED: PROPOFOL 200 MG/20 ML VIAL IV SCH (20:30)
[2020-08-10] MEDS: ENOXAPARIN SODIUM 40 MG/0.4 ML SYG SUBCU SCH (21:40)
[2020-08-10] MEDS: MIDAZOLAM INJ 5 MG/5 ML VIAL IV PRN (22:08)
[2020-08-10] MEDS: CARVEDILOL 3.125 MG TAB PO SCH (22:18)
[2020-08-10] MEDS: NIFEdipine XL 30 MG TAB PO SCH (22:19)
[2020-08-10] MEDS: guaiFENesin ER TAB 600 MG TAB PO SCH (22:19)
[2020-08-10] MEDS: RANOLAZINE ER 500 MG TAB PO SCH (22:20)
--- NOTE | 2020-08-10 22:50 | RAD ---
EXAM DESCRIPTION: Chest,1 View CLINICAL HISTORY: 85 years Female, Intubation COMPARISON: Chest x-ray August 09, 2020 FINDINGS: An endotracheal tube is present with its tip 3.9 cm above the talisha. Esophagogastric tube present with tip in the proximal gastric body. Extensive pulmonary airspace opacities demonstrated appearing increased. There is a small right pleural effusion which appears unchanged. No pneumothorax. Cardiomediastinal silhouette is unchanged. Osseous structures are unchanged. IMPRESSION: 1. Endotracheal tube in place as above. 2. Extensive pulmonary airspace opacities appearing increased. 3. Unchanged small right pleural effusion. Electronically signed by: Smith Song MD 08/10/2020 10:48 PM [facility]
[2020-08-11] MEDS: MIDAZOLAM INJ 5 MG/5 ML VIAL IV PRN ×6 (00:18→13:25)
[2020-08-11] MEDS: CEFEPIME 1 GM in SODIUM CHLORIDE 0.9% 50ML 50 ML IVPB SCH ×2 (01:48→12:30)
[2020-08-11] MEDS: LEVALBUTEROL NEBS 1.25 MG/3 ML VIAL NEB SCH ×2 (06:55→11:35)
[2020-08-11 07:25] VITALS: TEMP 100
[2020-08-11 07:29] VITALS: BP 161/79
[2020-08-11] MEDS ORDERED: AMIODARONE HCL 200 MG TAB PO SCH (08:00)
[2020-08-11] MEDS ORDERED: ATORVASTATIN 20 MG TAB PO SCH (08:00)
[2020-08-11] MEDS ORDERED: ISOSORBIDE MONONITRATE (IMDUR) 30 MG TAB PO SCH (08:00)
[2020-08-11] MEDS ORDERED: BIFIDOBACTERIUM INFANTIS 4 MG CAP PO SCH (08:00)
[2020-08-11] MEDS ORDERED: PANTOPRAZOLE SODIUM TAB 40 MG PO SCH (08:00)
[2020-08-11] MEDS ORDERED: ASPIRIN (CHEWABLE) 81 MG TAB PO SCH (08:00)
[2020-08-11] MEDS: ENOXAPARIN SODIUM 40 MG/0.4 ML SYG SUBCU SCH (08:38)
[2020-08-11] MEDS: DEXAMETHASONE INJ 10 MG/ML VIAL IV SCH (08:38)
[2020-08-11] MEDS: REMDESIVIR 100 MG in SODIUM CHLORIDE 0.9% 250ML 250 ML IVPB SCH (08:39)
[2020-08-11] MEDS ORDERED: MIDAZOLAM INJ 5 MG/5 ML VIAL ONE ×3 (08:42→13:19)
[2020-08-11 10:04] VITALS: O2SAT 100
[2020-08-11] MEDS: CARVEDILOL 3.125 MG TAB PO SCH (10:11)
[2020-08-11] MEDS: guaiFENesin ER TAB 600 MG TAB PO SCH (10:12)
[2020-08-11] MEDS: NIFEdipine XL 30 MG TAB PO SCH (10:13)
[2020-08-11] MEDS: RANOLAZINE ER 500 MG TAB PO SCH (10:13)
[2020-08-11] MEDS: AZITHROMYCIN IV 500 MG in SODIUM CHLORIDE 0.9% 250ML 250 ML IVPB SCH (11:13)
[2020-08-11] MEDS ORDERED: VECURONIUM BROMIDE 10 MG VIAL IV ONE (11:59)
--- NOTE | 2020-08-12 09:16 | PN ---
SUPERVISING PHYSICIAN: Elizabeth Lin MD DATE: 08/10/20 SUBJECTIVE: The patient is sitting up in bed. She is visibly short of breath, but otherwise has no complaints. We discussed her plan of care and that due to her high oxygen demand, we may need to change her to BiPAP at some point and she asked that I speak to her son in regard to her condition, which I did. OBJECTIVE: VITAL SIGNS: Temperature 97.9, heart rate 75, blood pressure 138/67, respiratory rate 24, O2 saturation 85% on 3 liters nasal cannula. It did come up to 94% on 5 liters nasal cannula. RESPIRATORY: Diminished breath sounds throughout with scattered rhonchi and a few expiratory wheezes. She is visibly tachypneic, especially with any exertion. CARDIAC: Regular rate and irregular rhythm. Atrial fibrillation on the cafeteria monitor. NEUROLOGIC: Awake, alert and oriented times three. LABORATORY: WBCs 12,400, hemoglobin 11.6, hematocrit 34.2. She has a left shift on differential. D-dimer 902, fibrinogen 546. Blood gas shows pCO2 35, pO2 51, O2 saturation 91.8%, pH 7.425. Electrolytes show potassium low at 3.4, calcium 8. AST 43, ALT 79. C-reactive protein 4.3. Troponin less than 0.02. MICROBIOLOGY: Preliminary blood cultures show no growth after 2 days. RADIOLOGY: Chest and thorax CTA shows 1) Bilateral ground glass opacities with bibasilar consolidation versus atelectasis, findings concerning for multifocal pneumonia. 2) Bilateral pleural effusions. All other labs and films have been reviewed via the EMR. ASSESSMENT: 1. COVID-19 pneumonitis. 2. Weakness and malaise secondary to #1. 3. Hypoxic respiratory failure secondary to #1. 4. Coronary artery disease. 5. Atrial fibrillation on Eliquis, beta blockers and recently started on amiodarone. 6. Mild dementia. PLAN: We will continue present COVID guidelines and change her oxygen source as her oxygen status demands. We will continue with aggressive pulmonary hygiene. She has actually been on and off high flow oxygen today and we may need to start her on BiPAP. We will continue to monitor the patient closely and follow as needed. #[id number] [facility]
[2020-08-12] MEDS ORDERED: PROPOFOL 500 MG/50 ML VIAL IV ONE ×2 (23:00)
--- NOTE | 2020-08-16 14:33 | PN ---
SUPERVISING PHYSICIAN: Elizabeth Lin MD DATE: 08/10/20 APPROXIMATE TIME: 1814 The patient has been having some respiratory distress. At this time, she is on 100% O2 on BiPAP machine. She is somewhat lethargic and she has increased work of breathing. A blood gas was obtained and her pCO2 was 35, pO2 50, bicarb 23.1 and pH 7.4. O2 saturation was 86%. Due to the patient's poor blood gas as well as increased work of breathing, the patient was intubated and placed on the ventilator. The patient required Diprivan for sedation after intubation. Please see procedure note for intubation information. It was titrated to keep the patient sedated. Her vital signs were within normal limits. There was attempt transfer the patient to hospital with a higher level of care, but we were unable to get any acceptance at another facility. At this point, the patient will remain on Diprivan. She will continue with mechanical ventilation and we will also continue to try to get her transferred to another hospital. ASSESSMENT: 1. Acute respiratory failure secondary to COVID-19 pneumonia with hypoxia. 2. COVID-19 pneumonitis. Critical care time: 1 hour, 10 minutes. #[id number] [facility]
--- NOTE | 2020-08-16 16:50 | DS ---
SUPERVISING PHYSICIAN: Valerio Lin M.D. DISCHARGE DIAGNOSIS: 1. Acute respiratory failure secondary to COVID-19 pneumonitis. 2. COVID-19 pneumonitis. 3. Weakness and malaise secondary to COVID -19. 4. Coronary artery disease. 5. Atrial fibrillation on Eliquis, beta blockers and recently started on amiodarone. 6. Mild dementia. HISTORY OF PRESENT ILLNESS: This is an 85-year-old female patient who was admitted to the Emergency Room due to shortness of breath, malaise and fatigue with increasing weakness for 3 to 4 days prior to admission. She saw her primary care physician the morning of admission and was diagnosed with COVID. Dr. Guerrero sent her to the Emergency Room for evaluation. In the ER, her temperature was 98.9, heart rate 72, blood pressure 134/65, respiratory rate 21, O2 saturation 89% on 2 liters nasal cannula. CBC was unremarkable but she did have a left shift on differential. D-dimer was 618. C reactive protein was 9.1, BNP was 338. Blood cultures were drawn. Chest x-ray showed large heart with pulmonary vascularity, mild to moderate bilateral pleural effusions. She was given Remdesivir, azithromycin, Rocephin and Decadron in the ER and admitted to the hospital. She was on Eliquis and was recently put on amiodarone. HOSPITAL COURSE: The patient was placed on the COVID-19 guidelines, including medications. She had aggressive pulmonary hygiene. Her amiodarone dosing was clarified. She also had a PPI for ulcer prophylaxis and Eliquis was sufficient for DVT prophylaxis. Over the next few days her oxygen requirements increased and they were titrated up to the point that she was on BiPAP. Early on the morning of the , she actually was on very high doses of oxygen on her BiPAP machine and a Jones catheter was placed. Her Decadron was doubled and she was changed to Lovenox. The patient became weaker and weaker to the point on the evening of the she required mechanical ventilation and she was intubated. She was placed on Diprivan drip as well as supplemental Versed. About 6 hours after her intubation, she was accepted to [facility] in [place], but due to the weather there was difficulty finding transportation to that facility. The patient remained in close observation overnight. She did continue on the Diprivan and at one point she did have to be paralyzed with Norcuron due to fighting the ventilator. Ground transportation was finally obtained and the patient was transferred to [facility] in [place] for a higher level of treatment. LABORATORY: Final WBCs were 10,600, hemoglobin 10.5, hematocrit 31.5. She had a left shift on her differential. D-dimer went up to 902, fibrinogen was 546. Final blood gas showed her to be hypoxic just prior to intubation. Just prior to discharge she continued to be hypoxic with a pO2 of 61, O2 saturation was 92.5%. Metabolic panel was unremarkable with the exception of her calcium being slightly low at 7.9. Urinalysis was within normal limits. Preliminary blood cultures show no growth after 3 days. RADIOLOGY: Final chest x-ray showed an endotracheal tube in place with extensive pulmonary airspace opacities appearing increased and an unchanged small right pleural effusion. CTA of the chest on 08/10/20 showed: 1. Extensive bilateral ground glass opacities with bibasilar consolidation versus atelectasis. Findings concerning for multifocal pneumonia. 2. Bilateral pleural effusions. DISCHARGE PLAN: The patient will be discharged via ground to [facility] ICU in [place], [place]. She is in critical but stable condition. Her medication list, lab reports and radiology reports were sent with the patient. She was also sent with her personal belongings, including her cell phone. Her family was kept updated during the entire process. DISCHARGE MEDICATIONS: 1. Nifedipine. 2. Nitroglycerin. 3. Ranolazine. 4. Isosorbide mononitrate. 5. Carvedilol. 6. Aspirin. 7. Atorvastatin. 8. Eliquis. 9. Clonidine. 10. Amiodarone. 11. Align. 12. Dexamethasone. 13. Propofol. 14. Cefepime. 15. Guaifenesin. 16. Remdesivir. 17. Versed. 18. Xopenex. 19. Azithromycin. 20. Zofran. #[id number] MTDD
--- NOTE | 2020-08-23 08:50 | PN ---
SUPERVISING PHYSICIAN: Elizabeth Lin MD DATE: 08/10/20 CRITICAL CARE NOTE TIME: 1745 PM The patient has progressively struggled and become more dependent on her oxygen. Her BiPAP is 100% and oxygen saturation is in the mid to upper 80s. The patient is very lethargic. Her blood gas shows pCO2 of 35, pO2 50, pH 7.42 with oxygen saturation of 86% The patient will be intubated per protocol. Dr. Holguin in the Emergency Room was called to the bedside and the patient was prepared for intubation. After intubation, the patient was stabilized. She was placed on Diprivan drip. She required extra sedation. There were multiple changes on the ventilator. Her vital signs did stabilize. About 4 or 5 hours after intubation, she was accepted to [facility] in [place]. We were unable to transfer the patient at that time due to road conditions. At 1930, the patient's heart rate was 73, her blood pressure was 125/66. Her respiratory rate was 20 and her 02 saturation was 97%. The patient was continued on Diprivan drip with supplemental Versed to keep her blood pressure greater than 95. Her blood pressure was 110/61. Total critical care time excluding procedures was 60 minutes. #[id number] MTDD
--- NOTE | 2020-08-23 09:08 | OP ---
SUPERVISING PHYSICIAN: Elizabeth Lin MD DATE OF PROCEDURE: 08/10/20 at approximately 1815 INDICATION: 1. Respiratory distress. PROCEDURE: 1. Endotracheal intubation. EMERGENCY ROOM PHYSICIAN: Juliocesar Holguin MD ADMITTING PROVIDER: MARC Hong PROCEDURE: A time-out was completed verifying the correct patient, procedure, site, positioning and special equipment. The patient was placed in the flat position. Sedation was obtained using 20 mg of Etomidate and then was given 100 mg of succinylcholine. The initial intubation was achieved through the GlideScope. There were lots of secretions. Attempted by MARC Hong, was unsuccessful and the patient was easily ventilated using an Ambu Bag. Multiple attempts were attempted by both MARC Hong, and Juliocesar Holguin MD. She was intubated with a 7-Frisian endotracheal tube that was inserted and visualized going through the cords. The stylette was removed. Colorimetric changes were visualized in the CO2 meter. Breath sounds were heard in both lung cruz equally. The endotracheal tube was placed at 23 cm at the teeth. A chest x-ray was ordered to assess for pneumothorax and verify endotracheal tube placement. The chest x-ray showed the endotracheal tube present at 3.9 cm above the talisha. The NG tube was also in the gastric body. The patient tolerated the procedure well and there were no complications. #[id number] MTDD
== END 2020-08-11 13:40 | disposition short-term general hospital (02) | DRG 208 ==
LOC: ER 15:17 → MS 18:29
PROVIDERS: ADMIT Nurse Practitioner Acute Care; ATTEND Nurse Practitioner Acute Care
PROC: XW033E5 Introduction of Remdesivir Anti-infective into Peripheral Vein, Percutaneous Approach, New Technology Group 5 (ICD-10-PCS; 2020-08-08)
PROC: 5A1935Z Respiratory Ventilation, Less than 24 Consecutive Hours (ICD-10-PCS; principal; 2020-08-10)
PROC: 0BH17EZ Insertion of Endotracheal Airway into Trachea, Via Natural or Artificial Opening (ICD-10-PCS; 2020-08-10)
DX: U07.1 COVID-19 (principal); J12.82 Pneumonia due to coronavirus disease 2019; J96.01 Acute respiratory failure with hypoxia; G30.9 Alzheimer's disease, unspecified; F02.80 Dementia in other diseases classified elsewhere, unspecified severity, without behavioral disturbance, psychotic disturbance, mood disturbance, and anxiety; I25.10 Atherosclerotic heart disease of native coronary artery without angina pectoris; I48.91 Unspecified atrial fibrillation; I10 Essential (primary) hypertension; E78.5 Hyperlipidemia, unspecified; I73.00 Raynaud's syndrome without gangrene; H54.61 Unqualified visual loss, right eye, normal vision left eye; Z98.61 Coronary angioplasty status; Z98.62 Peripheral vascular angioplasty status; Z86.73 Personal history of transient ischemic attack (TIA), and cerebral infarction without residual deficits; Z79.01 Long term (current) use of anticoagulants; Z90.710 Acquired absence of both cervix and uterus; Z82.3 Family history of stroke; Z79.82 Long term (current) use of aspirin; Z87.891 Personal history of nicotine dependence; Z80.1 Family history of malignant neoplasm of trachea, bronchus and lung

== ENCOUNTER → 2020-10-05 | Outpatient (CLI) | payer MEDICARE, OTHER | LOC: GOCC 12:00 | PROVIDERS: ATTEND Family Medicine | DX: N39.0 Urinary tract infection, site not specified (principal); R41.0 Disorientation, unspecified ==